=== PATIENT | female | born 1940 | race Two or more races ===

== ENCOUNTER 2017-08-16 17:36 | Inpatient (IN) | payer MEDICARE, OTHER ==
[~2017-08-16] VITALS: Ht 165.1 cm; Wt 59.3 kg
[2017-08-16] MEDS ORDERED: SODIUM CHLORIDE 0.9% 500 ML IVB ONE (18:25)
[2017-08-16 18:58] LABS: INR 1.24 (0.9-1.15); Partial Thromboplastin Time 33.9 sec (22.64-33.71); Prothrombin Time 13.5 sec (9.37-12.3)
[2017-08-16 19:01] LABS: Basophils # (auto) 0 uL; Basophils % (auto) 0.8 % (0.0-2.0); Eosinophils # (auto) 0.1 uL; Hemoglobin 9.3 g/dL (12.2-16.2); Lymphocytes # (auto) 0.4 uL; Lymphocytes % (auto) 13.3 % (10.0-50.0); Mean Corpuscular Hemoglobin 33.9 pg (28.0-32.0); Mean Corpuscular Hgb Conc. 33.3 g/dL (32.0-36.0); Mean Corpuscular Volume 101.7 fL (80.0-100.0); Mean Platelet Volume 8.6 fL (6.9-10.8); Monocytes # (auto) 0.3 uL; Monocytes % (auto) 10.5 % (0.0-12.0); Neutrophils # (auto) 2.4 uL; Neutrophils % (auto) 71.4 % (37.0-80.0); Nucleated Red Blood Cells % 0.4 %; White Blood Cell 3.3 10^3/uL (4.4-10.8)
[2017-08-16 19:08] LABS: Albumin 2.5 g/dL (3.4-5.0); BUN/Creatinine Ratio 7.1; Bilirubin, Total 1.4 mg/dL (0.2-1.0); Potassium 3.2 mmol/L (3.5-5.1); Total Protein 6.6 g/dL (6.4-8.2)
[2017-08-16 19:49] LABS: Platelet Count (auto) 49 10^3/uL (140-450)
[2017-08-16 21:59] LABS: Urine Bilirubin Negative (Negative); Urine Blood TRACE /uL (Negative); Urine Color Yellow (Yellow); Urine Glucose Normal (Normal); Urine Ketone Negative (Negative); Urine Mucus FEW (None Seen); Urine Nitrite Negative (Negative); Urine RBC 6 /hpf (0 - 4); Urine Urobilinogen Normal (Negative); Urine pH 8.5 (5.0-8.0)
[2017-08-16 22:03] LABS: Magnesium 2.3 mg/dL (1.6-2.6)
[2017-08-17] VITALS (7 sets, daily range): BP systolic 106–176; BP diastolic 45–72
[2017-08-17] MEDS ORDERED: ONDANSETRON HCL 4 MG/2 ML VIAL IV PRN (00:45)
[2017-08-17] MEDS ORDERED: POTASSIUM CHL 10% (20 MEQ/15ML) 15ml ORAL SOLN PO ONE (00:45)
[2017-08-17] MEDS ORDERED: ACETAMINOPHEN 500 MG TAB PO PRN (00:45)
[2017-08-17] MEDS ORDERED: DEXTROSE (50%) 50ML SYRG IV PRN (01:00)
[2017-08-17] MEDS: ACCU-CHEK COMFORT CURVE STRIP VI SCH ×4 (07:00→21:14)
[2017-08-17] MEDS: InsuLIN REG 1unit/0.01ml Soln (100units/ml) SC SCH ×4 (07:00→21:14)
[2017-08-17 09:21] LABS: Basophils # (auto) 0 uL; Basophils % (auto) 0.7 % (0.0-2.0); Eosinophils # (auto) 0.1 uL; Lymphocytes # (auto) 0.4 uL; Monocytes # (auto) 0.2 uL; Neutrophils # (auto) 1.7 uL
[2017-08-17 09:23] LABS: Eosinophils % (auto) 4.1 % (0.0-7.0); Hematocrit 28.3 % (36.0-46.0); Hemoglobin 9.7 g/dL (12.2-16.2); Mean Corpuscular Hemoglobin 34.2 pg (28.0-32.0); Mean Corpuscular Hgb Conc. 34.3 g/dL (32.0-36.0); Mean Corpuscular Volume 99.6 fL (80.0-100.0); Mean Platelet Volume 8.5 fL (6.9-10.8); Monocytes % (auto) 8.2 % (0.0-12.0); Nucleated Red Blood Cells % 0.3 %; Platelet Count (auto) 41 10^3/uL (140-450); Red Cell Distribution Width 18.4 % (11.8-14.3); White Blood Cell 2.4 10^3/uL (4.4-10.8)
[2017-08-17] MEDS ORDERED: LABETALOL HCL 5 MG/ML ML 20ML VIAL IV PRN ×3 (09:45)
[2017-08-17] MEDS ORDERED: LACTULOSE 20Gm/30ML SOLN PO PRN (09:45)
[2017-08-17 09:51] LABS: Albumin 2.7 g/dL (3.4-5.0); Bilirubin, Total 1.9 mg/dL (0.2-1.0); Calcium 8.7 mg/dL (8.5-10.1); Potassium 3.4 mmol/L (3.5-5.1); Total Protein 6.5 g/dL (6.4-8.2)
[2017-08-17] MEDS: TORSEMIDE 20 MG TAB PO SCH (09:56)
[2017-08-17] MEDS: amLODIPine BESYLATE 5 MG TAB PO SCH (09:58)
[2017-08-17] MEDS: ASPirin 81 mg TAB PO SCH (10:00)
[2017-08-17] MEDS: ENOXAPARIN SOD 30 MG/0.3 ML SYRINGE SC SCH (10:00)
[2017-08-17] MEDS: cefTRIAXone 1GM/50ML D5W 50 ML IV SCH (10:36)
[2017-08-17 13:31] LABS: Large Platelets FEW; Ovalocytes FEW; Platelet Estimate Decreased; Tear Drop Cells FEW
[2017-08-17] MEDS: ATORVASTATIN 20 MG TAB PO SCH (21:14)
[2017-08-17] MEDS ORDERED: ATORVASTATIN 20 MG TAB PO SCH (22:00)
[2017-08-18 05:00] VITALS: BP 152/66
[2017-08-18] MEDS: ACCU-CHEK COMFORT CURVE STRIP VI SCH ×4 (06:16→22:18)
[2017-08-18] MEDS: InsuLIN REG 1unit/0.01ml Soln (100units/ml) SC SCH ×4 (06:17→22:00)
[2017-08-18 06:34] LABS: Cholesterol 120 mg/dL (< 200); HDL Cholesterol 51 mg/dL (40-59); LDL Cholesterol 67 mg/dL (< 100); Triglycerides 83 mg/dL (< 150)
[2017-08-18 09:00] VITALS: BP 151/81
[2017-08-18] MEDS: ASPirin 81 mg TAB PO SCH (10:00)
[2017-08-18] MEDS: ENOXAPARIN SOD 30 MG/0.3 ML SYRINGE SC SCH (10:00)
[2017-08-18] MEDS: cefTRIAXone 1GM/50ML D5W 50 ML IV SCH (10:01)
[2017-08-18] MEDS: amLODIPine BESYLATE 5 MG TAB PO SCH (10:12)
[2017-08-18] MEDS: TORSEMIDE 20 MG TAB PO SCH (10:12)
[2017-08-18] MEDS ORDERED: GAB100C PO (11:17)
[2017-08-18] MEDS ORDERED: ALLO100T PO (11:17)
[2017-08-18] MEDS ORDERED: PROP60CA8 PO (11:17)
[2017-08-18] MEDS ORDERED: TORS10TA12 PO (11:17)
[2017-08-18] MEDS ORDERED: TRAZ50TA2 PO (11:17)
[2017-08-18] MEDS ORDERED: FERR325T PO (11:17)
[2017-08-18 13:00] VITALS: BP 153/71
[2017-08-18 17:00] VITALS: BP 163/60
[2017-08-18] MEDS ORDERED: LOSARTAN POTASSIUM 50 MG TAB PO ONE (18:00)
[2017-08-18 22:00] VITALS: BP 144/60
[2017-08-18] MEDS: ATORVASTATIN 20 MG TAB PO SCH (22:17)
[2017-08-19] MEDS: HYDROcodone-ACET 5/325MG TAB PO PRN ×3 (00:03→18:47)
[2017-08-19 05:00] VITALS: BP 155/72
[2017-08-19 05:38] LABS: Basophils # (auto) 0 uL; Eosinophils # (auto) 0.2 uL; Hemoglobin 8.1 g/dL (12.2-16.2); Lymphocytes # (auto) 0.5 uL; Monocytes # (auto) 0.3 uL; Neutrophils # (auto) 1.3 uL
[2017-08-19 05:44] LABS: Basophils % (auto) 1.1 % (0.0-2.0); Hematocrit 23.1 % (36.0-46.0); Lymphocytes % (auto) 21.1 % (10.0-50.0); Mean Corpuscular Hemoglobin 34.2 pg (28.0-32.0); Mean Corpuscular Volume 97.8 fL (80.0-100.0); Mean Platelet Volume 8.3 fL (6.9-10.8); Monocytes % (auto) 11.6 % (0.0-12.0); Neutrophils % (auto) 58.2 % (37.0-80.0); Platelet Count (auto) 42 10^3/uL (140-450); Red Cell Distribution Width 18.3 % (11.8-14.3); White Blood Cell 2.3 10^3/uL (4.4-10.8)
[2017-08-19 05:51] LABS: Calcium 8.1 mg/dL (8.5-10.1); Potassium 3.8 mmol/L (3.5-5.1)
[2017-08-19 05:53] LABS: BUN/Creatinine Ratio 12.1
[2017-08-19] MEDS: InsuLIN REG 1unit/0.01ml Soln (100units/ml) SC SCH (06:43)
[2017-08-19] MEDS: ACCU-CHEK COMFORT CURVE STRIP VI SCH (06:43)
[2017-08-19 09:00] VITALS: BP 128/65
[2017-08-19] MEDS: ENOXAPARIN SOD 30 MG/0.3 ML SYRINGE SC SCH (10:00)
[2017-08-19] MEDS ORDERED: LOSARTAN POTASSIUM 50 MG TAB PO SCH (10:00)
[2017-08-19] MEDS: TORSEMIDE 20 MG TAB PO SCH (10:00)
[2017-08-19] MEDS: ASPirin 81 mg TAB PO SCH (10:00)
[2017-08-19 10:41] LABS: Temperature: 22.4 C (20.0-25.0)
[2017-08-19 11:41] VITALS: BP 163/60
[2017-08-19 17:00] VITALS: BP 151/58
== END 2017-08-19 19:00 | disposition home or self-care (01) | DRG 432 ==
LOC: EDBD 17:36 → ER 17:54 → OVERFLOW 17:55 → WEST WING 08-17 01:02 → OVERFLOW 08-17 01:02 → WEST WING 08-17 01:05
PROVIDERS: ADMIT Nurse Practitioner Family; ATTEND Internal Medicine
PROC: 5A1D70Z Performance of Urinary Filtration, Intermittent, Less than 6 Hours Per Day (ICD-10-PCS; principal; 2017-08-16)
DX: K74.60 Unspecified cirrhosis of liver (principal); E43 Unspecified severe protein-calorie malnutrition; G93.41 Metabolic encephalopathy; J81.1 Chronic pulmonary edema; D61.818 Other pancytopenia; K72.90 Hepatic failure, unspecified without coma; D68.9 Coagulation defect, unspecified; D69.6 Thrombocytopenia, unspecified; N18.6 End stage renal disease; I12.0 Hypertensive chronic kidney disease with stage 5 chronic kidney disease or end stage renal disease; T83.9XXA Unspecified complication of genitourinary prosthetic device, implant and graft, initial encounter; R47.01 Aphasia; I67.82 Cerebral ischemia; I65.22 Occlusion and stenosis of left carotid artery; E11.22 Type 2 diabetes mellitus with diabetic chronic kidney disease; D63.8 Anemia in other chronic diseases classified elsewhere; Z99.2 Dependence on renal dialysis; E87.6 Hypokalemia; B19.20 Unspecified viral hepatitis C without hepatic coma; Z90.49 Acquired absence of other specified parts of digestive tract; Z82.49 Family history of ischemic heart disease and other diseases of the circulatory system; Z79.82 Long term (current) use of aspirin; Z79.899 Other long term (current) drug therapy; R31.9 Hematuria, unspecified; Y84.8 Other medical procedures as the cause of abnormal reaction of the patient, or of later complication, without mention of misadventure at the time of the procedure; Y92.89 Other specified places as the place of occurrence of the external cause
CPT/HCPCS: 36415; 51702; 70450; 70551; 71010; 76705; 80048; 80053; 80061; 81001; 82140; 82550; 82607; 82746; 82962; 83036; 83735; 84443; 84484; 85025; 85610; 85652; 85730; 87086; 90935; 92610; 93005; 93306; 93886; 94761; 95819; 96361; 96365; J0696